=== PATIENT | female | born 1975 | race Caucasian/White ===

== ENCOUNTER 2016-12-19 04:45 | Day surgery (SDC) | payer OTHER ==
[2016-12-17 12:38] LABS: BASOPHILS 0.2 %; BASOPHILS ABSOLUTE 0.02 10/3/uL (0.0-0.16); EOSINOPHILS 1.4 %; EOSINOPHILS ABSOLUTE 0.13 10/3/uL (0.0-0.53); HEMATOCRIT 40.9 % (36.0-48.0); HEMOGLOBIN 13.7 g/dL (12.0-16.0); IMMATURE GRANULOCYTES 0.1 %; IMMATURE GRANULOCYTES ABSOLUTE 0.01 10/3/uL (0.0-0.11); LYMPHOCYTES 34.9 %; LYMPHOCYTES ABSOLUTE 3.21 10/3/uL (0.67-4.30); MEAN CORPUS HGB CONC 33.5 g/dL (32.0-36.0); MEAN CORPUSCULAR HEMOGLOB 31.2 pg (26.0-34.0); MEAN CORPUSCULAR VOLUME 93.2 fL (80-100); MEAN PLATELET VOLUME 9.8 fL (9.2-13.0); MONOCYTES 6.8 %; MONOCYTES ABSOLUTE 0.63 10/3/uL (0.21-1.20); NEUTROPHILS 56.6 %; PLATELET COUNT 339 10/3/uL (150-400); RBC DISTRIBUTION WIDTH 11.8 % (12.0-16.0); RED CELL COUNT 4.39 10/6/uL (4.0-5.6); WHITE BLOOD CELLS 9.2 10/3/uL (4.5-10.5)
[2016-12-17 12:41] LABS: MANUAL DIFF NO %
[2016-12-17 12:43] LABS: PROTIME (NOT ORD) 13.1 SEC (12.0-14.5)
[2016-12-17 13:03] LABS: A/G RATIO 1.2 (0.7-1.9); ALKALINE PHOSPHATASE 83 U/L (45-117); BUN (BLOOD UREA NITROGEN) 13 MG/DL (6-23); CALCIUM, SERUM 8.8 MG/DL (8.5-10.4); CHLORIDE, SERUM 106 MMOL/L (96-112); CO2 (CARBON DIOXIDE) 28 MMOL/L (24-34); CREATININE 0.94 MG/DL (0.55-1.02); GFR AFRICAN AMERICAN 88 ML/MIN (>=60); GFR NON AFRICAN AMERICAN 76 ML/MIN (>=60); GLOBULIN 3.3 G/DL (2.5-4.1); GLUCOSE, SERUM 65 MG/DL (60-99); POTASSIUM, SERUM 4.3 MMOL/L (3.5-5.3); SGOT(AST) 10 U/L (5-40); SGPT(ALT) 14 U/L (5-65); SODIUM, SERUM 136 MMOL/L (135-148); TOTAL BILIRUBIN 0.2 MG/DL (0-1.2); TOTAL PROTEIN 7.3 G/DL (6.0-8.5)
[2016-12-17 13:07] LABS: ASCORBIC ACID (UR NOT ORDER) NEG (NEG); BILIRUBIN, URINE NEGATIVE (NEG); KETONE, URINE NEGATIVE (NEG); LEUKOCYTE ESTERASE(NOT OR NEG (NEG); WBC (NOT ORDERED) (RFLEX) 1 (0-5)
--- NOTE | ~2016-12-19 | OP ---
Record Of Operation [facility] [address] [place]. [address] NAME: JANUSZ PRINGLE : [birth year] STATUS : [facility]#: [id number] AGE: 41 ADM/REG DATE : 12/19/16 MR#: [id number] REPORT SERV DATE: 12/20/16 DICTATED BY: KATIE MAO DATE: 12/19/16 REPORT STATUS : Draft TRANSCRIBED BY: MODL DATE: 12/19/16 DATE OF PROCEDURE: 12/19/2016 PREOPERATIVE DIAGNOSIS: Painful left femoral screws. POSTOPERATIVE DIAGNOSIS: Painful left femoral screws. PROCEDURE: Left femoral screws removal. SURGEON: Eduard Mao M.D. WAIST PRESSER: See chart. INDICATIONS: A 41-year-old female who had left IM nail with proximal distal interlocking screws placed by another surgeon. I counseled her preoperatively I would take the screws as they caused her lateral thigh pain but we agreed that we would not take the ashley out. PROCEDURE IN DETAIL: The patient was taken to the operating room and placed supine on the table in normal fashion without incident. General anesthetic was induced per the anesthesiologist. The patient was carefully positioned in a right lateral decubitus position, prepped and draped in normal sterile fashion. A sharp dissection was made through a straight incision laterally over the screws with electrocautery through the fat. The IT band was split in line with its fibers. The screw heads were identified. They were wedged into the ashley. It was very difficult to remove. The proximal most one was stripped out and even it was so tight into the ashley that it stripped out the easy out. I was able to finally grasp it with a vice aquatic ecologist and was able to take it out that way. Similarly, the proximal screw was identified and taken out with screw driver examiner painstakingly. There was no evidence of any trauma. The wound was irrigated and closed, dressed sterilely. The patient was awakened and taken to the postanesthesia care unit without incident. COMPLICATION: None. SPECIMENS: Removed screws. BLOOD LOSS: About 50 mL. WTB/MODL Eduard Mao M.D. / [id number] CC: Record Of Operation [place] [address]. [address] NAME: JANUSZ PRINLGE : [birth year] STATUS : [facility] PAT#: [id number] AGE: 41 ADM/REG DATE : 12/19/16 MR#: [id number] REPORT SERV DATE: 12/20/16 DICTATED BY: KATIE MAO DATE: 12/19/16 REPORT STATUS : Draft TRANSCRIBED BY: ERIN DATE: 12/19/16 Kunal Fong M.D.
[~2016-12-19 04:45] MED LIST: ACET500CAP PO; VALTREX5 PO
== END 2016-12-19 13:48 | disposition home or self-care (01) ==
LOC: SDC 04:45
PROVIDERS: Specialist
PROC: 0QP704Z Removal of Internal Fixation Device from Left Upper Femur, Open Approach (ICD-10-PCS; 2016-12-19)
PROC: 0QPC04Z Removal of Internal Fixation Device from Left Lower Femur, Open Approach (ICD-10-PCS; principal; 2016-12-19 06:45)
DX: T84.84XA Pain due to internal orthopedic prosthetic devices, implants and grafts, initial encounter (principal); E78.00 Pure hypercholesterolemia, unspecified; Z98.890 Other specified postprocedural states; Z87.81 Personal history of (healed) traumatic fracture; Z80.9 Family history of malignant neoplasm, unspecified; Z83.3 Family history of diabetes mellitus; Z82.49 Family history of ischemic heart disease and other diseases of the circulatory system; Z88.0 Allergy status to penicillin; Z88.1 Allergy status to other antibiotic agents; Z88.2 Allergy status to sulfonamides; Z88.5 Allergy status to narcotic agent; Z88.6 Allergy status to analgesic agent
CPT/HCPCS: 71020; 80053; 81001; 84703; 85025; 85610; 88300; 93005; A9270-GY; J2250; J2270; J2370; J2405; J2710; J2795; J3010; J3370